=== PATIENT | female | born 1940 | race Caucasian/White ===

== ENCOUNTER 2017-07-13 15:06 | Outpatient (CLI) | payer MEDICARE, MEDICAID ==
--- NOTE | 2017-07-13 15:37 | RAD ---
LEFT KNEE FOUR VIEWS 07/13/17 HISTORY: Pain. COMPARISON: None. FINDINGS: No significant joint effusion. Joint spaces appear to be preserved. There is mild degenerative change and loss of joint space height in the medial compartment. No fracture. There is diffuse mild bone de mineralization. IMPRESSION: Chronic changes as above. POS: [facility]
== END 2017-07-13 15:07 | disposition home or self-care (01) ==
LOC: SCSRAD 15:06
PROVIDERS: ATTEND Family Medicine
DX: M25.562 Pain in left knee (principal); M17.12 Unilateral primary osteoarthritis, left knee

== ENCOUNTER 2018-06-30 16:23 | Observation (INO) | payer MEDICARE, MEDICAID ==
[~2018-06-30 16:23] MED LIST: ISOVUE-370 76%-LOCM 1 ML ONE
[2018-06-30 17:11] LABS: #Basophils 0.1 thou/uL (0.0-0.2); #Eosinphils 0.5 thou/uL (0.0-0.7); #Monocytes 1.4 thou/uL (0.11-0.59); #Neutrophils 7.4 thou/uL (1.40-6.50); %Basophils 0.5 % (0.0-1.0); %Eosinophils 3.8 % (0.0-10.0); %Lymphocytes 24.4 % (21.0-51.0); %Monocytes 11.3 % (0.0-10.0); Hemoglobin 11.7 g/dL (12.0-16.0); Mean Corpuscular HGB CONC 33.5 g/dL (32.0-36.0); Mean Corpuscular Hemoglobin 29.4 pg (27.0-31.0); Mean Corpuscular Volume 87.8 fL (78.0-98.0); Mean Platelet Volume 6.8 fL (7.4-10.4); Platelet Count 352 thou/uL (130-400); RBC Distribution Width 12.2 % (11.5-14.5); Red Blood Cell (RBC) Count 3.98 mill/uL (4.20-5.40); White Blood Cell (WBC) Count 12.3 thou/uL (4.8-10.8)
[2018-06-30] MEDS ORDERED: Nitroglycerin 0.4 MG TAB (25 Tab Bottle) ONE (17:19)
[2018-06-30] MEDS ORDERED: Mag-Al 1200 mg/1200 mg/30 ML UDCUP ONE (17:19)
[2018-06-30] MEDS ORDERED: Lidocaine Viscous Sol 2% 15 ml UD Cup ONE (17:19)
[2018-06-30] MEDS ORDERED: Nitroglycerin 2% Ointment 1 INCH/1 GM Packet ONE ×2 (17:19→18:21)
[2018-06-30 17:35] LABS: ALT (SGPT) 16 U/L (8-55); AST (SGOT) 19 U/L (5-34); Albumin 4.4 g/dL (3.4-4.8); Alkaline Phosphatase 70 U/L (40-150); Anion Gap 15 mmol/L (10-20); BUN (Urea Nitrogen) 13 mg/dL (9.8-20.1); Bilirubin, Total 0.4 mg/dL (0.2-1.2); Calc. Creatinine Clearance 0 mL/min (70-130); Calcium 9.9 mg/dL (7.8-10.44); Carbon Dioxide 25 mmol/L (23-31); Chloride 98 mmol/L (98-107); Estimated GFR-MDRD 76; Globulin 2.7 g/dL (2.4-3.5); Glucose 126 mg/dL (83-110); Protein, Total 7.1 g/dL (6.0-8.3); Sodium 134 mmol/L (136-145)
--- NOTE | 2018-06-30 18:05 | RAD ---
PORTABLE CHEST: 06/30/18 INDICATIONS: Preoperative evaluation. COMPARISON: 10/28/15. Heart size is upper normal. Mild vascular engorgement. No evidence of focal infiltrate or significant effusion. IMPRESSION: Borderline cardiomegaly and mild vascular engorgement. POS: [facility]
--- NOTE | 2018-06-30 19:38 | CT ---
EXAM: CT PULMONARY ANGIOGRAM CHEST WITH 3D RENDERIN06/30/18 HISTORY: Chest pain. There is cardiomegaly. Mild dilatation of the central pulmonary artery. No CT evidence for acute pulm onary embolism. Mild dilatation of the ascending aorta up to 4.2 cm. Small hiatal hernia. Multiple ga llstones without acute cholecystitis. No pleural effusion or pericardial effusion. No mediastinal mas s or adenopathy. IMPRESSION: No CT evidence for acute pulmonary embolism. Multiple gallstones. Small hiatal hernia. Cardiomegaly. POS: [facility]
[2018-06-30] MEDS ORDERED: Zolpidem Tartrate 5 MG TAB PO PRN (19:51)
[2018-06-30] MEDS ORDERED: Senokot S 8.6-50 MG TAB PO PRN (19:51)
[2018-06-30] MEDS ORDERED: Nitroglycerin 0.4 MG TAB (25 Tab Bottle) PO PRN (19:51)
[2018-06-30] MEDS ORDERED: Bisacodyl 5 MG TAB PO PRN (19:51)
[2018-06-30] MEDS ORDERED: Acetaminophen 325 MG TAB PO PRN (19:51)
[2018-06-30] MEDS ORDERED: Calcium Carbonate 500 MG ChewTAB PO PRN (19:51)
[2018-06-30] MEDS ORDERED: Dextrose 50% Abboject 50 ML SYRINGE SLOW IVP PRN (20:18)
[2018-06-30] MEDS ORDERED: Dextrose 5% in Water 1,000 ML IV PRN (20:18)
[2018-06-30] MEDS ORDERED: HumaLOG 300 UNITS/3 ML VIAL SC PRN ×2 (20:18)
[2018-06-30] MEDS ORDERED: Aspirin 325 MG TAB PO SCH (20:30)
[2018-06-30] MEDS ORDERED: hydrALAZINE 20 MG/ML VIAL SLOW IVP PRN (20:32)
[2018-06-30 21:17] LABS: CKMB 1.9 ng/mL (0-6.6)
[2018-06-30 21:42] VITALS: BMI 27.6
[2018-06-30] MEDS ORDERED: Pregabalin 75 MG CAP PO SCH (23:00)
[2018-06-30] MEDS ORDERED: Simvastatin 20 MG TAB PO SCH (23:00)
[2018-06-30] MEDS: Sodium Chloride 0.9% 1,000 ML IV SCH (23:00)
[2018-06-30] MEDS: Famotidine 20 MG TAB PO SCH (23:00)
[2018-06-30] MEDS: Nitroglycerin 2% Ointment 1 INCH/1 GM Packet TOP SCH (23:02)
[2018-06-30] MEDS: Famotidine/PF 20 mg/2ml Vial SLOW IVP SCH (23:03)
[2018-07-01] MEDS: Nitroglycerin 2% Ointment 1 INCH/1 GM Packet TOP SCH ×3 (05:02→22:16)
[2018-07-01 05:08] LABS: #Basophils 0.1 thou/uL (0.0-0.2); #Eosinphils 0.7 thou/uL (0.0-0.7); #Lymphocytes 2.8 thou/uL (1.20-3.40); #Monocytes 1.3 thou/uL (0.11-0.59); #Neutrophils 5.9 thou/uL (1.40-6.50); %Basophils 0.5 % (0.0-1.0); %Eosinophils 6.5 % (0.0-10.0); %Lymphocytes 26.2 % (21.0-51.0); %Monocytes 11.9 % (0.0-10.0); %Neutrophils 54.9 % (42.0-75.0); Hemoglobin 11.4 g/dL (12.0-16.0); Mean Corpuscular HGB CONC 34.3 g/dL (32.0-36.0); Mean Corpuscular Hemoglobin 30.3 pg (27.0-31.0); Mean Corpuscular Volume 88.1 fL (78.0-98.0); Platelet Count 332 thou/uL (130-400); RBC Distribution Width 12.3 % (11.5-14.5); Red Blood Cell (RBC) Count 3.75 mill/uL (4.20-5.40); White Blood Cell (WBC) Count 10.8 thou/uL (4.8-10.8)
[2018-07-01 05:26] LABS: Anion Gap 13 mmol/L (10-20); BUN (Urea Nitrogen) 12 mg/dL (9.8-20.1); Calc. Creatinine Clearance 82 mL/min (70-130); Calcium 9.4 mg/dL (7.8-10.44); Carbon Dioxide 28 mmol/L (23-31); Cardiac Risk 3.5 (Less than 4.5); Chloride 100 mmol/L (98-107); Cholesterol 134 mg/dl (< 200 Desired); Estimated GFR-MDRD 80; Glucose 136 mg/dL (83-110); HDL Cholesterol 38 mg/dL (>60 Neg Risk); LDL Cholesterol, Calculated 76 mg/dL; Potassium 3.7 mmol/L (3.5-5.1); Sodium 137 mmol/L (136-145); Triglycerides 102 mg/dL (Less than 150)
--- NOTE | 2018-07-01 07:58 | HP ---
CHIEF COMPLAINT: Chest pain. HISTORY OF PRESENT ILLNESS: This is a 78-year-old female with past medical history of hypertension, hyperlipidemia, peripheral neuropathy, and diabetes mellitus type 2, presenting with chest pain which has been ongoing for a day prior to the day of admission. The patient stated that her chest pain started in the afternoon prior to the day of admission. The patient states that the chest pain was located in the substernal, left side upper chest. The patient stated that she took her home medication, hoping that it was going to help, but it did not help. The patient then stated that she vomited x5 and to the point that she was not able to throw anything up. She was started to have dry heaves because she has vomited too many times. The patient stated that because of this vomitus and chest discomfort, it prompted her to go to her primary care physician's office. At the primary care physician's office, EKG was done, which showed some abnormality. Therefore, primary care physician told the patient to come to the hospital to be further evaluated and treated. At this point, the patient endorses mild chest pain. Otherwise, denies any fever, chills, nausea, vomiting, palpitations, abdominal pain, dysuria, hematuria, hematochezia, or melena. REVIEW OF SYSTEMS: Positive for chest pain, otherwise as documented in the HPI. All other systems are reviewed and are negative. PAST MEDICAL HISTORY: Diverticulitis, hypertension, , peripheral neuropathy, hemorrhagic cystitis, hyperlipidemia, and diabetes mellitus type 2. FAMILY HISTORY: Reviewed and noncontributory to this visit. PAST SURGICAL HISTORY: , BTL, hysterectomy, and foot surgery. PSYCHIATRIC HISTORY: The patient denies any psych history. SOCIAL HISTORY: The patient denies any alcohol use. Denies any illicit drug use, and denies any smoking history. ALLERGIES: THE PATIENT IS ALLERGIC TO CODEINE, LATEX, PENICILLIN, SULFA, AND TETANUS TOXOID. CURRENT MEDICATIONS: 1. The patient is on atenolol 25 mg. 2. Gemfibrozil 600 mg. 3. Lisinopril 20 mg. 4. Metformin 1000 mg. 5. Simvastatin 20 mg. 6. Protonix. 7. Lyrica. 8. Isosorbide mononitrate 30 mg. 9. Vitamin C. 10. Vitamin D. 11. Vitamin E. 12. Glucosamine chondroitin plus vitamin B12. 13. Lutein and Zeaxanthin. 14. Fish oil. 15. Cranberry fruit. 16. Multivitamins. PHYSICAL EXAMINATION: VITAL SIGNS: The patient's blood pressure is 213/81, pulse of 54, respiratory rate of 16, and temperature of 99.0, pain scale of 3/10 when the patient came in, oxygenation is 98% on room air. GENERAL: The patient is lying in bed, does not appear to be in any acute distress. The patient is very pleasant, able to speak to me in full sentences. HEENT: Normocephalic and atraumatic. Pupils are equally round and reactive to light. Extraocular movements are intact. No scleral icterus. No conjunctival pallor. Extraocular muscles are intact. Mucous membranes are moist. NECK: Trachea is midline. Full range of motion. Nontender. No lymphadenopathies. RESPIRATORY: Clear to auscultation bilaterally. No wheezing, no rales, no rhonchi appreciated. CARDIAC: Positive S1 and S2. Regular rate and rhythm. No murmurs. No rubs. No gallops. ABDOMEN: Soft, nontender, and nondistended. Positive bowel sounds in all quadrants. No peritoneal signs. EXTREMITIES: 5/5 upper extremity strength with good radial pulses bilaterally. Lower extremity, 5/5 lower extremity strength with good pulses bilaterally. No edema noted. NEUROLOGIC: Cranial nerves 2 through 12 grossly intact. No neurologic deficits noted. SKIN: Warm, dry, and intact. PSYCHIATRIC: Normal affect, alert and oriented x3. DIAGNOSTIC DATA: EK-lead EKG shows sinus bradycardia of 53 with occasional premature ventricular complexes. CT showed no PE. There are multiple gallstones with no cholecystitis. LABORATORY DATA: WBC is 12.3, hemoglobin is 11.7, hematocrit is 35.0, MCV is 87.8, RDW 12.2, and platelet is 352. D-dimer is 0.52. Sodium is 134, potassium is 4.0, chloride is 98, carbon dioxide of 25, anion gap of 15, BUN is 13, creatinine is 0.74, and glucose is 126. AST is 19 and ALT 16. Troponin is 0.028 and 0.029 respectively. ASSESSMENT AND PLAN: This is a 78-year-old female, being admitted for: 1. Chest pain, likely secondary to unstable angina. We will rule out acute coronary syndrome at this time. We will follow up on third troponins. We will follow up on morning EKGs. We have consulted Cardiology. We will follow up with Cardiology's recommendations. We have ordered echo for the patient. We will follow up on echo results. We will continue the patient on her cardiac medications. 2. History of hypertension, uncontrolled. Currently, the patient's blood pressure is elevated in the 200s. We are going to give the patient p.r.n. blood pressure medications to bring the patient's blood pressure to the 160 systolic. We will continue the patient on p.r.n. blood pressure medications, so we will continue to treat the patient accordingly. We will continue the patient on home medications as well, and we will adjust the patient's blood pressure medications. 3. Hyperlipidemia. We will continue the patient on statins. 4. Peripheral neuropathy. We will continue the patient on home medications. 5. Diabetes mellitus, type 2. We will continue the patient on insulin sliding scale. We will monitor the patient's blood glucose. 6. Deep venous thrombosis and gastrointestinal prophylaxis. Job ID: [id number]
[2018-07-01] MEDS: Famotidine/PF 20 mg/2ml Vial SLOW IVP SCH ×2 (08:34→20:51)
[2018-07-01] MEDS: Gemfibrozil 600 MG TAB PO SCH ×2 (08:55→20:50)
[2018-07-01] MEDS: Pregabalin 75 MG CAP PO SCH ×2 (08:55→20:51)
[2018-07-01] MEDS: Aspirin 325 MG TAB PO SCH (08:55)
[2018-07-01] MEDS: Lisinopril 20 MG TAB PO SCH (08:56)
[2018-07-01] MEDS: Famotidine 20 MG TAB PO SCH ×2 (08:56→20:50)
[2018-07-01] MEDS: Enoxaparin Sodium 40 MG/0.4 ML SYRINGE SC SCH (08:57)
[2018-07-01] MEDS: Amlodipine 10 MG TAB PO SCH (08:57)
[2018-07-01] MEDS ORDERED: Atenolol 25 MG TAB PO SCH (09:00)
[2018-07-01] MEDS ORDERED: CRANBERRY FRUIT 400 MG PO SCH (09:00)
[2018-07-01] MEDS ORDERED: Non-Formulary Item 1 EACH (Cod Liver Oil [Cod Liver Oil] 1 EACH) PO SCH (09:00)
[2018-07-01] MEDS: Ascorbic Acid 500 mg Chewable Tablet PO SCH (09:10)
[2018-07-01] MEDS: Calcium Carbonate + Vit D 1 TAB PO SCH (09:10)
[2018-07-01] MEDS: Vit A,C & E/Lutein/Minerals Tablet PO SCH (09:11)
[2018-07-01] MEDS: Multivitamin W/ Minerals 1 TAB PO SCH (09:11)
[2018-07-01] MEDS: Fish Oil 1,000 MG CAP PO SCH (09:11)
[2018-07-01] MEDS: Cyanocobalamin (Vitamin B-12) 1,000 MCG TAB PO SCH (09:11)
[2018-07-01] MEDS: Atenolol 25 MG TAB PO SCH (10:14)
[2018-07-01] MEDS: Sodium Chloride 0.9% 1,000 ML IV SCH (11:21)
--- NOTE | 2018-07-01 12:32 | PDOC.PN ---
- Subjective Encounter Start Date: 07/01/18 (f/u on chest pain) Encounter Start Time: 12:30 Subjective: Pt reports the pain is improved today - dull lower chest, constant with -: occasional worsening. She notes a few times while working at [employer] -: standing up from leaning forward and feeling lightheaded. - Objective Resuscitation Status - Order Detail: 06/30/18 19:51 Resuscitation Status Routine Resuscitation Status: FULL: Full Resuscitation Vital Signs & Weight: Vital Signs (12 hours) Temp Pulse Resp BP BP Pulse Ox 07/01/18 11:18 97.9 F 51 L 16 183/77 H 97 07/01/18 07:34 98.4 F 54 L 16 183/79 H 95 07/01/18 04:54 55 L 177/77 H 07/01/18 04:09 98.7 F 48 L 16 186/79 H 98 Weight Admit Weight 176 lb 6.4 oz Weight 176 lb 6.4 oz I&O: 06/30/18 07/01/18 07/02/18 06:59 06:59 06:59 Intake Total 903 Output Total 1999 Balance -1097 Result Diagrams: 07/01/18 04:37 07/01/18 04:37 Additional Labs: Accuchecks 07/01/18 06/30/18 11:34 22:05 POC Glucose 112 H 155 H EKG Reviewed by me: Yes (sinus 30-50's) Phys Exam - Physical Examination Constitutional: NAD Respiratory: no wheezing, no rales, no rhonchi Cardiovascular: RRR, no significant murmur Gastrointestinal: soft, non-tender, positive bowel sounds Musculoskeletal: no edema Neurological: non-focal, moves all 4 limbs Psychiatric: normal affect Skin: no rash Dx/Plan (1) Bradycardia Code(s): R00.1 - BRADYCARDIA, UNSPECIFIED Status: Acute (2) Chest pain Code(s): R07.9 - CHEST PAIN, UNSPECIFIED Status: Acute (3) Hypertension Code(s): I10 - ESSENTIAL (PRIMARY) HYPERTENSION Status: Chronic Qualifiers: Hypertension type: unspecified Qualified Code(s): I10 - Essential (primary ) hypertension (4) Peripheral neuropathy Code(s): G62.9 - POLYNEUROPATHY, UNSPECIFIED Status: Chronic Qualifiers: Peripheral neuropathy type: polyneuropathy, unspecified Qualified Code(s): G62.9 - Polyneuropathy, unspecified (5) Diabetes mellitus Code(s): E11.9 - TYPE 2 DIABETES MELLITUS WITHOUT COMPLICATIONS Status: Chronic Qualifiers: Diabetes mellitus type: type 2 Diabetes mellitus prison insulin use: without prison use (6) Dyslipidemia Code(s): E78.5 - HYPERLIPIDEMIA, UNSPECIFIED Status: Chronic - Plan * sinus bradycardia - with occasional episodes that may be sx - recommend conservation technician eval. d/c atenolol * reviewed echo - pt reports known valve disease - shows moderate AR and severe TR. * chest pain - ruled out for cardiac injury with troponins and tele notable for bradycardia - cardiology consult * * d/c ivf * continue home meds as ordered except d/c atenolol * continue added amlodipine for bp control along with lisinopril, isosorbide * * dvt prophy - ambulatory * gi prophy -not indicated * code status full * * reviewed plan of care with patient, no questions or further needs at end of eval
[2018-07-01] MEDS: Simvastatin 20 MG TAB PO SCH (20:51)
[2018-07-02] MEDS: Nitroglycerin 2% Ointment 1 INCH/1 GM Packet TOP SCH (05:22)
[2018-07-02] MEDS: Amlodipine 10 MG TAB PO SCH (08:20)
[2018-07-02] MEDS: Enoxaparin Sodium 40 MG/0.4 ML SYRINGE SC SCH (08:20)
[2018-07-02] MEDS: Famotidine 20 MG TAB PO SCH ×2 (08:20→20:23)
[2018-07-02] MEDS: Aspirin 325 MG TAB PO SCH (08:20)
[2018-07-02] MEDS: Pregabalin 75 MG CAP PO SCH ×2 (08:21→20:23)
[2018-07-02] MEDS: Lisinopril 20 MG TAB PO SCH (08:21)
[2018-07-02] MEDS: Gemfibrozil 600 MG TAB PO SCH ×2 (08:21→20:23)
[2018-07-02] MEDS: Fish Oil 1,000 MG CAP PO SCH (08:25)
[2018-07-02] MEDS: Cyanocobalamin (Vitamin B-12) 1,000 MCG TAB PO SCH (08:25)
[2018-07-02] MEDS: Famotidine/PF 20 mg/2ml Vial SLOW IVP SCH (08:25)
[2018-07-02] MEDS: Calcium Carbonate + Vit D 1 TAB PO SCH (08:25)
[2018-07-02] MEDS: Ascorbic Acid 500 mg Chewable Tablet PO SCH (08:25)
[2018-07-02] MEDS: Atenolol 25 MG TAB PO SCH (08:25)
[2018-07-02] MEDS: Multivitamin W/ Minerals 1 TAB PO SCH (08:26)
[2018-07-02] MEDS: Vit A,C & E/Lutein/Minerals Tablet PO SCH (08:26)
[2018-07-02] MEDS ORDERED: Lisinopril 20 MG TAB PO SCH (11:15)
--- NOTE | 2018-07-02 11:19 | PDOC.PN ---
- Subjective Encounter Start Date: 07/02/18 (f/u hypertension) Encounter Start Time: 11:17 Subjective: Pt with pain only with taking deep breaths. Denies any new symptoms. -: denies lightheaded or dizzy - Objective Resuscitation Status - Order Detail: 06/30/18 19:51 Resuscitation Status Routine Resuscitation Status: FULL: Full Resuscitation Vital Signs & Weight: Vital Signs (12 hours) Temp Pulse Resp BP Pulse Ox 07/02/18 07:45 97.6 F 45 L 20 176/74 H 94 L 07/02/18 03:13 98.9 F 54 L 14 174/79 H 94 L 07/01/18 23:36 99.2 F 50 L 18 159/72 H 92 L Weight Admit Weight 176 lb 6.4 oz Weight 172 lb I&O: 07/01/18 07/02/18 07/03/18 06:59 06:59 06:59 Intake Total 903 1740 Output Total 2000 500 Balance -1097 1240 Result Diagrams: 07/01/18 04:37 07/01/18 04:37 Additional Labs: Accuchecks 07/02/18 07/01/18 07/01/18 06:03 21:06 16:58 POC Glucose 159 H 178 H 123 H 07/01/18 11:34 POC Glucose 112 H EKG Reviewed by me: Yes (jeffrey 30-40's sinus) Phys Exam - Physical Examination Constitutional: NAD Respiratory: no wheezing, no rales, no rhonchi, clear to auscultation bilateral Cardiovascular: RRR, no significant murmur Gastrointestinal: soft, non-tender, no distention, positive bowel sounds Musculoskeletal: no edema Neurological: non-focal, moves all 4 limbs Psychiatric: normal affect Dx/Plan (1) Bradycardia Code(s): R00.1 - BRADYCARDIA, UNSPECIFIED Status: Acute (2) Chest pain Code(s): R07.9 - CHEST PAIN, UNSPECIFIED Status: Acute (3) Hypertension Code(s): I10 - ESSENTIAL (PRIMARY) HYPERTENSION Status: Chronic Qualifiers: Hypertension type: unspecified Qualified Code(s): I10 - Essential (primary ) hypertension (4) Peripheral neuropathy Code(s): G62.9 - POLYNEUROPATHY, UNSPECIFIED Status: Chronic Qualifiers: Peripheral neuropathy type: polyneuropathy, unspecified Qualified Code(s): G62.9 - Polyneuropathy, unspecified (5) Diabetes mellitus Code(s): E11.9 - TYPE 2 DIABETES MELLITUS WITHOUT COMPLICATIONS Status: Chronic Qualifiers: Diabetes mellitus type: type 2 Diabetes mellitus 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 * chest pain - ruled out for cardiac injury with troponins and tele notable for bradycardia - cardiology consult * * bp not controlled - amlodipine added yesterday, pt on isosorbide and lisinopril. Will increase lisinopril to 40 mg once daily. * * dvt prophy - ambulatory * gi prophy -not indicated * code status full * * reviewed plan of care with patient, no questions or further needs at end of eval.
[2018-07-02] MEDS ORDERED: Hydrochlorothiazide 25 MG TAB PO SCH (11:30)
--- NOTE | 2018-07-02 19:37 | CON ---
DATE OF CONSULTATION: HISTORY OF PRESENT ILLNESS: Christa Torrez is a 78-year-old white female, who has been seen and evaluated by Dr. Patel in the past, although, she has not seen for over 2 years. In January 2016, Lexiscan Cardiolite test was probably normal with no overt areas of ischemia or infarction. Also echocardiogram in January 2015 revealed ejection fraction of 55% to 60% with [id number] mitral regurgitation and mild tricuspid regurgitation. There is evidence for diastolic dysfunction. She was last seen in March 2016 and the atenolol was reduced from 50 p.o. to 25 mg daily. On June 29 in the evening, she began to have chest pressure. This lasted for approximately 48 hours and was continuous. The pain was not pleuritic in nature. She ultimately decided to come to the emergency room for further evaluation. Here in the hospital, it has been noted that she is extremely bradycardic, heart rates in the 40s and at times, dropping into the upper 30s. Atenolol has been discontinued. She denies any history of syncope, lightheadedness, dizziness, or weakness. PAST MEDICAL HISTORY: Hypertension, hyperlipidemia, diabetes, history of hemorrhagic cystitis and peripheral neuropathy, diverticulitis. PAST SURGICAL HISTORY: Five C sections, tubal ligation, hysterectomy, and foot surgery. MEDICATIONS: 1. Atenolol 25 mg q.a.m. 2. Cod Liver oil 1 tablet daily. 3. Gemfibrozil 600 mg b.i.d. 4. Isosorbide mononitrate 30 daily. 5. Lisinopril 20 mg daily. 6. Metformin 1000 mg b.i.d. 7. [place]-3 daily. 8. Protonix 40 daily. 9. Lyrica 75 mg b.i.d. 10. Simvastatin 20 at bedtime. ALLERGIES: CODEINE, SULFA, PENICILLIN, LATEX, AND TETANUS. SOCIAL HISTORY: She does not smoke or drink. REVIEW OF SYSTEMS: A 10-point review of systems is otherwise unremarkable. PHYSICAL EXAMINATION: VITAL SIGNS: Blood pressure 153/71 and pulse of 44, sinus. HEENT: PERRL. NECK: Supple. CHEST: Clear. CARDIAC: S1 and S2 normal without any S3, S4, or significant murmur. ABDOMEN: Normal bowel sounds without tenderness or organomegaly. EXTREMITIES: Reveal no clubbing, cyanosis, or edema. NEUROLOGIC: Grossly intact. SKIN: Warm and dry. LABORATORY DATA: EKG revealed sinus bradycardia with occasional PVCs, nonspecific ST and T-wave changes. Sodium 137, potassium 3.7, chloride 100, carbon dioxide 28, BUN 12, creatinine 0.71. Cholesterol 134, triglycerides 102, HDL 38, LDL 76. D-dimer 0.52. Hemoglobin 11.4, hematocrit 33.1, white count 10,800, platelets 332,000. CT angiogram of the chest revealed no evidence of pulmonary embolism. There are multiple gallstones. IMPRESSION: 1. Prolonged chest discomfort with unremarkable cardiac enzymes. I doubt this is cardiac in nature and she did have gallstones on her chest CT. 2. Sinus bradycardia, which historically appears to be asymptomatic. Her atenolol has been discontinued during this admission. 3. Hypercholesterolemia under poor control in a diabetic. 4. Hypertension. 5. Positive family history. 6. Cholelithiasis. PLAN: The patient will undergo Lexiscan Cardiolite testing for further evaluation. Also, abdominal ultrasound will be performed to better assess her cholelithiasis. Job ID: [id number]
[2018-07-02] MEDS: Simvastatin 20 MG TAB PO SCH (20:23)
--- NOTE | 2018-07-02 22:47 | ULT ---
RIGHT UPPER QUADRANT ULTRASOUND: Date: 07-02-18 Comparison: None. History: Cholelithiasis, pain. Technique: Multiplanar grayscale sonographic imaging of the right upper quadrant obtained. FINDINGS: The bar pilot reports a negative Daley's sign. Imaged pancreas is unremarkable. Distal body and ta il are obscured by bowel gas. No focal liver lesion or intrahepatic biliary dilatation is seen. Numerous shadowing stones are noted within the gallbladder lumen. No pericholecystic fluid or gallbla dder wall thickening. CBD measures 3 mm, within normal limits. Right kidney measures 11 cm craniocaudal dimension and demonstrates no stone, hydronephrosis or mass. IMPRESSION: Cholelithiasis with no sonographic evidence of cholecystitis or biliary dilatation. POS: [facility]
[2018-07-03] MEDS: Amlodipine 10 MG TAB PO SCH (04:32)
[2018-07-03 05:13] LABS: Anion Gap 11 mmol/L (10-20); BUN (Urea Nitrogen) 14 mg/dL (9.8-20.1); Calc. Creatinine Clearance 78 mL/min (70-130); Calcium 9.4 mg/dL (7.8-10.44); Carbon Dioxide 27 mmol/L (23-31); Chloride 101 mmol/L (98-107); Estimated GFR-MDRD 77; Glucose 128 mg/dL (83-110); Potassium 4.5 mmol/L (3.5-5.1); Sodium 134 mmol/L (136-145)
--- NOTE | 2018-07-03 08:52 | PDOC.PN ---
- Subjective Encounter Start Date: 07/03/18 Encounter Start Time: 11:45 Subjective: Patient back from stress test. No SOB. No chest pain. No complaints -: currently. - Objective Resuscitation Status - Order Detail: 06/30/18 19:51 Resuscitation Status Routine Resuscitation Status: FULL: Full Resuscitation MAR Reviewed: Yes Vital Signs & Weight: Vital Signs (12 hours) Temp Pulse Resp BP BP Pulse Ox 07/03/18 07:48 98.2 F 53 L 16 187/77 H 98 07/03/18 04:33 191/77 H 07/03/18 04:32 49 L 191/77 H 07/03/18 04:23 98.2 F 49 L 20 191/77 H 94 L 07/02/18 23:32 98.2 F 45 L 18 165/74 H 93 L 07/02/18 21:50 49 L 184/75 H Weight Admit Weight 176 lb 6.4 oz Weight 172 lb I&O: 07/02/18 07/03/18 07/04/18 06:59 06:59 06:59 Intake Total 1740 1140 Output Total 500 Balance 1240 1140 Result Diagrams: 07/01/18 04:37 07/03/18 04:24 Additional Labs: Accuchecks 07/02/18 07/02/18 07/02/18 21:16 17:01 11:39 POC Glucose 192 H 123 H 111 H Phys Exam - Physical Examination Constitutional: NAD HEENT: moist MMs Respiratory: no wheezing, no rales, no rhonchi mild bradycardia, no murmur Gastrointestinal: soft, positive bowel sounds Neurological: non-focal, moves all 4 limbs Psychiatric: normal affect, A&O x 3 Dx/Plan (1) Chest pain Code(s): R07.9 - CHEST PAIN, UNSPECIFIED Status: Resolved Comment: CM negative, Dr. Woods consulted. Stress test today. Possibly related to Gallstones or other non-cardiac eitiology. (2) Bradycardia Code(s): R00.1 - BRADYCARDIA, UNSPECIFIED Status: Acute Comment: Atenolol discontinued, now in the low 50s and asymptomatic (3) Diabetes mellitus Code(s): E11.9 - TYPE 2 DIABETES MELLITUS WITHOUT COMPLICATIONS Status: Chronic Qualifiers: Diabetes mellitus type: type 2 Diabetes mellitus intermediate insulin use: without intermediate use (4) Dyslipidemia Code(s): E78.5 - HYPERLIPIDEMIA, UNSPECIFIED Status: Chronic (5) Hypertension Code(s): I10 - ESSENTIAL (PRIMARY) HYPERTENSION Status: Chronic Qualifiers: Hypertension type: unspecified Qualified Code(s): I10 - Essential (primary ) hypertension Comment: Uncontrolled especially off Betablocker. Will add Hydralazine. (6) Peripheral neuropathy Code(s): G62.9 - POLYNEUROPATHY, UNSPECIFIED Status: Chronic Qualifiers: Peripheral neuropathy type: polyneuropathy, unspecified Qualified Code(s): G62.9 - Polyneuropathy, unspecified (7) Cholelithiasis Code(s): K80.20 - CALCULUS OF GALLBLADDER W/O CHOLECYSTITIS W/O OBSTRUCTION Status: Acute Comment: U/S with uncomplicated gallstones, no evidence acute cholelithiasis. If has recurrent symptoms can have surgery evaluate. - Plan cont current plan of care, out of bed/ambulate, DVT proph w/lovenox, DVT proph w /SCDs If stress test negative can be discharged. Follow up with PCP about -: gallstones. * . - Discharge Day Encounter end time: 12:00
[2018-07-03] MEDS ORDERED: Hydrochlorothiazide 25 MG TAB PO SCH (09:00)
[2018-07-03] MEDS ORDERED: Lisinopril 20 MG TAB PO SCH (09:00)
[2018-07-03] MEDS ORDERED: Regadenoson 0.4 MG/5 ML SYRINGE ONE (10:30)
[2018-07-03 12:17] VITALS: TEMP 98
[2018-07-03] MEDS: Aspirin 325 MG TAB PO SCH (12:18)
[2018-07-03] MEDS: hydrALAZINE 25 MG TAB PO SCH ×2 (12:19→14:23)
[2018-07-03] MEDS: Calcium Carbonate + Vit D 1 TAB PO SCH (12:21)
[2018-07-03] MEDS: Ascorbic Acid 500 mg Chewable Tablet PO SCH (12:22)
[2018-07-03] MEDS: Famotidine 20 MG TAB PO SCH (12:22)
[2018-07-03] MEDS: Enoxaparin Sodium 40 MG/0.4 ML SYRINGE SC SCH (12:22)
[2018-07-03] MEDS: Cyanocobalamin (Vitamin B-12) 1,000 MCG TAB PO SCH (12:22)
[2018-07-03] MEDS: Vit A,C & E/Lutein/Minerals Tablet PO SCH (12:23)
[2018-07-03] MEDS: Fish Oil 1,000 MG CAP PO SCH (12:23)
[2018-07-03] MEDS: Multivitamin W/ Minerals 1 TAB PO SCH (12:23)
[2018-07-03] MEDS: Pregabalin 75 MG CAP PO SCH (12:23)
[2018-07-03] MEDS: Gemfibrozil 600 MG TAB PO SCH (12:23)
--- NOTE | 2018-07-03 13:14 | NM ---
RADIONUCLIDE STRESS REST MYOCARDIAL PERFUSION SCAN WITH CT ATTENUATION CORRECTION AND SPECT IMAGING LEFT VENTRICULAR WALL MOTION EVALUATION AND EJECTION FRACTION: History: Chest pain. FINDINGS: Lexiscan protocol. There is heterogeneous uptake of radiotracer throughout the left ventricular myoca rdium. No focal perfusion defect or reversibility. QGS analysis of gated SPECT images shows no focal wall motion abnormalities. Ejection fraction calculated at 74%. IMPRESSION: Normal myocardial perfusion. Normal LVEF. POS: [facility]
--- NOTE | 2018-07-03 14:49 | PDOC.CTH ---
Cardiology Progress Note - Subjective No recurrrent episodes of CP. Stress test normal - Objective Vital Signs Temp Pulse Resp BP BP Pulse Ox 07/03/18 14:23 56 L 163/73 H 07/03/18 12:19 56 L 163/73 H 07/03/18 11:26 98 F 45 L 16 187/74 H 96 07/03/18 07:48 98.2 F 53 L 16 187/77 H 98 07/03/18 04:33 191/77 H 07/03/18 04:32 49 L 191/77 H 07/03/18 04:23 98.2 F 49 L 20 191/77 H 94 L Admit Weight 176 lb 6.4 oz Weight 172 lb 07/02/18 07/03/18 07/04/18 06:59 06:59 06:59 Intake Total 1740 1140 Output Total 500 Balance 1240 1140 - Physical Examination General/Neuro: alert & oriented x3, NAD Neck: carotid US brisk, no JVD present Lungs: CTA, unlabored respirations Heart: PMI normal, RRR Abdomen: NT/ND, soft Extremities: + femoral B - Telemetry Telemetry Rhythm: sr - Labs Result Diagrams: 07/01/18 04:37 07/03/18 04:24 Troponin/CKMB CK-MB (CK-2) 1.9 ng/mL (0-6.6) 06/30/18 20:15 Troponin I 0.029 ng/mL (< 0.028) H 06/30/18 23:04 - Assessment/Plan CP Bradycardia CL study normal Hold BB secondary to bradycardia manage bP fu with me in 1-2 weeks
[2018-07-03 14:52] VITALS: BP 155/70
--- NOTE | 2018-07-04 14:02 | DIS ---
DATE OF ADMISSION: 06/30/2018 DATE OF DISCHARGE: 07/03/2018 PRIMARY CARE PHYSICIAN: Dr. Ronald King. REASON FOR ADMISSION: Chest pain and uncontrolled hypertension. DIAGNOSES AT DISCHARGE: 1. Chest pain, resolved, noncardiac etiology. 2. Bradycardia, asymptomatic. 3. Uncontrolled hypertension. 4. Diabetes mellitus, type 2. 5. Dyslipidemia. 6. Peripheral neuropathy. 7. Cholelithiasis. PROCEDURES: 1. CT of the chest with contrast showing no evidence for acute pulmonary embolism. There was a small hiatal hernia, cardiomegaly and multiple gallstones. 2. Right upper quadrant ultrasound showing cholelithiasis without any evidence of cholecystitis or biliary dilatation. 3. Cardio-nuclear stress test showing normal myocardial perfusion and normal ejection fraction. 4. Echocardiogram, ejection fraction of 55% to 60% with moderate mitral regurgitation, moderate aortic regurgitation and severe tricuspid regurgitation. CONSULTATIONS: Cardiology, Dr. Woods for Dr. Patel. SUMMARY OF HOSPITAL COURSE: This is a 78-year-old female with a history of hypertension, hyperlipidemia, and diabetes, who presented with chest pain going on for 1 day. She also had some vomiting. The patient was seen first in her primary care doctor's office, EKG which showed some abnormalities, and she was sent to the ER. In the ER, she had had resolution of her chest pain. EKGs at that time showed sinus bradycardia in the 50s; however, she did have some drops into the 40s and even 30s at one point during her hospitalization. She had negative troponins and had an echocardiogram done. The patient was also noted to have severely uncontrolled blood pressures in the emergency room, elevated into the 200 systolic. She had her atenolol held due to bradycardia and had her amlodipine increased and eventually her lisinopril increased and then hydralazine was added. The patient had a nuclear medicine stress test which was negative for evidence of ischemia and Dr. Patel cleared her for discharge home. She did have a right upper quadrant ultrasound that confirmed gallstones, which showed no evidence of cholecystitis. The patient was asymptomatic the day of discharge and being discharged home. DISCHARGE MANAGEMENT: Discharged home. FOLLOWUP: Follow up with Dr. King in 2 to 3 weeks concerning her gallstones. ACTIVITY: As tolerated. DIET: Healthy heart, low-sodium diet. MEDICATIONS: 1. Amlodipine 10 mg daily, 30 tablets dispensed. 2. Hydralazine 25 mg 3 times a day, 90 tablets dispensed. 3. Lisinopril 40 mg daily, 30 tablets dispensed. 4. Resume previous medications, cod liver oil 1 cap daily. 5. Cranberry 400 mg daily. 6. Glucosamine/chondroitin/MSM 1 tablet daily. 7. Metformin 1000 mg twice a day. 8. 40 mg daily. Job ID: [id number]
== END 2018-07-03 15:15 | disposition home or self-care (01) ==
LOC: ERS 16:23 → 2SW 20:51
PROVIDERS: ADMIT Internal Medicine; ATTEND Internal Medicine
DX: R07.89 Other chest pain (principal); R00.1 Bradycardia, unspecified; I10 Essential (primary) hypertension; E11.42 Type 2 diabetes mellitus with diabetic polyneuropathy; E78.5 Hyperlipidemia, unspecified; K44.9 Diaphragmatic hernia without obstruction or gangrene; K80.20 Calculus of gallbladder without cholecystitis without obstruction; I08.3 Combined rheumatic disorders of mitral, aortic and tricuspid valves; E78.00 Pure hypercholesterolemia, unspecified; Z79.84 Long term (current) use of oral hypoglycemic drugs; Z79.899 Other long term (current) drug therapy; Z88.0 Allergy status to penicillin; Z88.2 Allergy status to sulfonamides; Z88.5 Allergy status to narcotic agent; Z88.7 Allergy status to serum and vaccine; Z91.040 Latex allergy status
CPT/HCPCS: 71045; 71275; 76705; 78452; 80048 ×2; 80053; 80061; 82553; 82962 ×4; 84484 ×2; 85025 ×2; 85379; 93005; 93017; 93306; 94760 ×2; 96361 ×2; 96372 ×2; 96374; 99285; A9500; G0378 ×3; 36415; 36416; J0360; J1650; J2785

== ENCOUNTER 2025-01-30 10:50 | Outpatient (CLI) | payer BC, MEDICARE | END 2025-01-30 10:51 | disposition home or self-care (01) | LOC: MRI 10:50 | PROVIDERS: ATTEND Family Medicine | DX: M21.371 Foot drop, right foot (principal) | CPT/HCPCS: 70551 ==

== ENCOUNTER 2025-04-11 14:12 | Outpatient (CLI) | payer MEDICARE | END 2025-04-11 14:13 | disposition home or self-care (01) | LOC: BICRAD 14:12 | PROVIDERS: ATTEND Family Medicine | DX: Z01.818 Encounter for other preprocedural examination (principal) | CPT/HCPCS: 71046 ==